=== PATIENT | female | born 1950 | race Caucasian/White ===

== ENCOUNTER 2017-01-05 22:28 | Observation (INO) | payer MEDICARE ==
[~2017-01-05] VITALS: Ht 162.6 cm; Wt 74.5 kg
[~2017-01-05 22:28] MED LIST: LOSA100T2 PO; METF1000 PO; SIMV10TA PO
[2017-01-05 22:33] VITALS: BP 174/65; PULSE 74; RESP 16; TEMP 97.4; O2SAT 99
[2017-01-05] MEDS ORDERED: MORPHINE SULFATE 4 MG/ML INJ IV PUSH ONE (23:00)
[2017-01-05] MEDS ORDERED: ASPIRIN 81 MG CHEW TAB PO ONE (23:00)
[2017-01-05] MEDS ORDERED: SODIUM CHLORIDE 0.9% FLUSH 10 ML FLUSH IVF PRN (23:00)
[2017-01-05] MEDS ORDERED: NITROGLYCERIN 2% OINT 1 GM PACKET TOP ONE (23:00)
--- NOTE | 2017-01-05 23:02 | PD ---
HPI . Chest pain Chief Complaint: Chest Pain Time Seen by Provider: 22:51 Travel History International Travel<30 days: No Contact w/Intl Traveler<30days: No Traveled to known affect area: No History of Present Illness HPI Patient presents with chest pain that started about 5:30 PM. She describes it as achy and sharp and like gas. She rates it as 7/10. The pain has subsequently started radiating to the left neck and shoulder. She does state that the neck pain is exacerbated by movement. She reports associated nausea. She denies shortness of breath, diaphoresis and dizziness. She states that she took a baby aspirin and drank a glass of water with no relief of her symptoms. Chest pain has no associated exacerbating factors. Past medical history significant for hypertension, diabetes and hyperlipidemia. PFSH Past Medical History Arthritis: Yes Autoimmune Disease: No Heart Rhythm Problems: No Cancer: No Cardiac Catheterization: No Cardiovascular Problems: Yes (htn on meds) High Cholesterol: Yes Congestive Heart Failure: No Diabetes: Yes (type 2) Diminished Hearing: No Endocrine: Yes Gastrointestinal Disorders: Yes GERD: Yes Genitourinary: No Hiatal Hernia: Yes Hypertension: Yes Immune Disorder: No Neurologic: No Psychiatric: No Reproductive: No Respiratory: No Myocardial Infarction: No ?: Not Menopausal: Yes Tubal Ligation: Yes (1975) Past Surgical History Coronary Artery Bypass Graft: No Hysterectomy: Yes Pacemaker: No Other Surgery: Yes ("1973--R.FALLOPIAN TUBE REMOVED") Social History Alcohol Use: No Tobacco Use: No Substance Use: No Allergies-Medications (Allergen,Severity, Reaction): Coded Allergies: Azithromycin (Verified Allergy, Intermediate, RASH, 01/05/17) Codeine (Verified Adverse Reaction, Severe, NAUSA/VOMITING,DIZZINESS, 01/05) Reported Meds & Prescriptions Reported Meds & Active Scripts Active Reported [Gummy Vites] 2 Chew PO DAILY [Fish Oil] 1,000 Mg PO DAILY Pantoprazole (Pantoprazole Sodium) 40 Mg Tab 40 Mg PO DAILY Metformin (Metformin HCl) 500 Mg Tab 500 Mg PO DAILY With a meal Metformin (Metformin HCl) 1,000 Mg Tab 1,000 Mg PO BIDPC With meals Losartan-Hydrochlorothiazide 100-25 Mg Tab 1 Tab PO DAILY Simvastatin 10 Mg Tab 10 Mg PO DAILY Review of Systems Except as stated in HPI: all other systems reviewed are Neg Cardiovascular: Positive: Chest Pain or Discomfort Respiratory: No: Shortness of Breath Gastrointestinal: Positive: Nausea, No: Vomiting Musculoskeletal: Positive: Pain (left neck and shoulder pain) Physical Exam Narrative GENERAL: An alert and in no acute distress. SKIN: Warm and dry. HEAD: Atraumatic. Normocephalic. EYES: Pupils equal and round. Extraocular movements are intact. ENT: No nasal bleeding or discharge. Mucous membranes pink and moist. NECK: Trachea midline. Neck is supple. Tenderness to palpation of the left trapezius. CARDIOVASCULAR: Regular rate and rhythm. Heart sounds are normal. She does have chest wall tenderness. RESPIRATORY: No accessory muscle use. Lungs are clear with full air movement throughout. GASTROINTESTINAL: Abdomen soft, non-tender, nondistended. MUSCULOSKELETAL: No obvious deformities. No edema. NEUROLOGICAL: Awake and alert. No obvious cranial nerve deficits. Motor grossly within normal limits. Normal speech. PSYCHIATRIC: Appropriate mood and affect; insight and judgment normal. Data Data Last Documented VS Vital Signs Date Time Temp Pulse Resp B/P Pulse Ox O2 Delivery O2 Flow Rate FiO2 01/05/17 23:49 67 16 138/63 98 Room Air 01/05/17 22:33 97.4 Orders Basic Metabolic Panel (Bmp) (01/05/17 22:51) Ckmb (Isoenzyme) Profile (01/05/17 22:51) Complete Blood Count With Diff (01/05/17 22:51) D-Dimer (01/05/17 22:51) Magnesium (Mg) (01/05/17 22:51) Prothrombin Time / Inr (Pt) (01/05/17 22:51) Act Partial Throm Time (Ptt) (01/05/17 22:51) Troponin I (01/05/17 22:51) Chest, Single Ap (01/05/17 22:51) Ecg Monitoring (01/05/17 22:51) Iv Access Insert/Monitor (01/05/17 22:51) Oximetry (01/05/17 22:51) Oxygen Administration (01/05/17 22:51) Aspirin Chew (Aspirin Chew) (01/05/17 23:00) Morphine Inj (Morphine Inj) (01/05/17 23:00) Nitroglycerin 2% Oint (Nitroglycerin 2% (01/05/17 23:00) Sodium Chloride 0.9% Flush (Ns Flush) (01/05/17 23:00) CKMB (01/05/17 22:40) CKMB% (01/05/17 22:40) Ct Pulmonary Angiogram (01/05/17 23:27) Labs Laboratory Tests Test 01/05/17 22:40 White Blood Count 8.6 TH/MM3 Red Blood Count 4.75 MIL/MM3 Hemoglobin 12.5 GM/DL Hematocrit 37.8 % Mean Corpuscular Volume 79.6 FL Mean Corpuscular Hemoglobin 26.3 PG Mean Corpuscular Hemoglobin 33.0 % Concent Red Cell Distribution Width 14.6 % Platelet Count 290 TH/MM3 Mean Platelet Volume 8.8 FL Neutrophils (%) (Auto) 63.0 % Lymphocytes (%) (Auto) 27.4 % Monocytes (%) (Auto) 6.4 % Eosinophils (%) (Auto) 2.0 % Basophils (%) (Auto) 1.2 % Neutrophils # (Auto) 5.3 TH/MM3 Lymphocytes # (Auto) 2.4 TH/MM3 Monocytes # (Auto) 0.6 TH/MM3 Eosinophils # (Auto) 0.2 TH/MM3 Basophils # (Auto) 0.1 TH/MM3 CBC Comment DIFF FINAL Differential Comment Prothrombin Time 10.7 SEC Prothromb Time International 1.0 RATIO Ratio Activated Partial 25.2 SEC Thromboplast Time D-Dimer Quantitative (PE/DVT) 0.66 MG/L FEU Sodium Level 137 MEQ/L Potassium Level 3.9 MEQ/L Chloride Level 99 MEQ/L Carbon Dioxide Level 29.4 MEQ/L Anion Gap 9 MEQ/L Blood Urea Nitrogen 17 MG/DL Creatinine 0.86 MG/DL Estimat Glomerular Filtration 66 ML/MIN Rate Random Glucose 188 MG/DL Calcium Level 8.6 MG/DL Magnesium Level 1.3 MG/DL Total Creatine Kinase 135 U/L Creatine Kinase MB 1.2 NG/ML Troponin I LESS THAN 0.02 NG/ML MDM Medical Decision Making Medical Screen Exam Complete: Yes Emergency Medical Condition: Yes Medical Record Reviewed: Yes (past history is significant for hypertension, diabetes and hyperlipidemia.) Interpretation(s) EKG shows a sinus rhythm with some nonspecific STT wave changes. The EKG is unchanged from previous. Differential Diagnosis Differential diagnosis of chest pain includes but is not limited to musculoskeletal pain, pulmonary embolism, acute coronary syndrome, pneumonia, pleurisy Narrative Course Patient presents complaining with chest pain that radiates to the left neck and shoulder. She does have cardiac risk factors including hypertension, diabetes and hyperlipidemia. CBC & BMP Diagram 01/05/17 22:40 Initial cardiac enzymes are negative. D-dimer is 0.66. CT for PE has subsequently been ordered. Patient reports that her chest pain has been completely relieved by nitro paste. She is still complaining with some left neck pain. The nurse reports that the patient on morphine as she does not like the way that it makes her feel. Last Impressions Chest X-Ray 01/05/17 1770 Signed Impressions: Service Date/Time: December 23:07 - CONCLUSION: Normal examination for a patient of this age. Sky England MD Care is being turned over to Dr. Prescott pending the results of her CT for PE. The tentative plan is to admit her to the chest pain center. Critical Care Narrative Aggregate critical care time was 45 minutes. Time to perform other separately billable procedures was not included in the critical care time. My time did not include minutes spent treating any other patients simultaneously or on activities that did not directly contribute to the patient's treatment. The services I provided to this patient were to treat and/or prevent clinically significant deterioration due to chest pain with the possibility of ACS/non- STEMI I provided critical care services requiring my management, as noted below: Chart data review, documentation time, medication orders and management, vital sign assessments/reviewing monitor data, ordering and reviewing lab tests, ordering and interpreting/reviewing x-rays and diagnostic studies, care of the patient and discussion of the patient with the admitting physicians Diagnosis Primary Impression: Chest pain Qualified Code: R07.9 - Chest pain, unspecified type Condition: Stable Sheron Mallory MD January 05, 2017 23:02
[2017-01-05] MEDS ORDERED: METF500T PO (23:04)
[2017-01-05 23:06] LABS: AUTOMATED NEUTROPHIL # 5.3 TH/MM3 (1.8-7.7); BASOPHIL # 0.1 TH/MM3 (0-0.2); BASOPHIL % 1.2 % (0.0-2.0); EOSINOPHIL # 0.2 TH/MM3 (0-0.4); HEMATOCRIT 37.8 % (35.0-46.0); HEMO FLAGS DIFF FINAL; LYMPH % 27.4 % (9.0-44.0); LYMPHOCYTE # 2.4 TH/MM3 (1.0-4.8); MEAN CELL VOLUME 79.6 FL (80.0-100.0); MEAN CORPUSCULAR HEMOGLOBIN 26.3 PG (27.0-34.0); MONO % 6.4 % (0.0-8.0); PLATELET COUNT 290 TH/MM3 (150-450); RED BLOOD COUNT 4.75 MIL/MM3 (4.00-5.30); RED CELL DISTRIBUTION WIDTH 14.6 % (11.6-17.2); WHITE BLOOD COUNT 8.6 TH/MM3 (4.0-11.0)
[2017-01-05] MEDS ORDERED: PANT40TA3 PO (23:08)
[2017-01-05] MEDS ORDERED: FISHOIL PO (23:08)
[2017-01-05] MEDS ORDERED: [UNRECOGNIZED DRUG - OTHER] PO (23:09)
--- NOTE | 2017-01-05 23:13 | RADHPO ---
EXAM DATE/TIME: 01/05/2017 23:07 [facility] COMPARISON: No previous studies available for comparison. INDICATIONS : Left sided chest pain for 6 hours MEDICAL HISTORY : None. SURGICAL HISTORY : None. ENCOUNTER: Initial ACUITY: 1 day PAIN SCORE: 8/10 LOCATION: Left chest FINDINGS: A single view of the chest demonstrates the lungs to be symmetrically aerated without evidence of mas s, infiltrate or effusion. The cardiomediastinal contours are unremarkable. Osseous structures are intact. CONCLUSION: Normal examination for a patient of this age. Sky England MD on January 05, 2017 at 23:11 Board Certified Radiologist. This report was verified electronically.
[2017-01-05 23:16] LABS: CHLORIDE 99 MEQ/L (98-107); SODIUM (NA) 137 MEQ/L (136-145)
[2017-01-05 23:17] LABS: POTASSIUM 3.9 MEQ/L (3.5-5.1)
[2017-01-05 23:19] LABS: ANION GAP 9 MEQ/L (5-15); BICARBONATE 29.4 MEQ/L (21.0-32.0); BLOOD UREA NITROGEN 17 MG/DL (7-18); MAGNESIUM 1.3 MG/DL (1.5-2.5)
[2017-01-05 23:22] LABS: GLOMERULAR FILTRATION RATE 66 ML/MIN (>89)
[2017-01-05 23:25] LABS: APTT (PATIENT) 25.2 SEC (24.3-30.1); PROTHROMBIN TIME - PATIENT 10.7 SEC (9.8-11.6)
[2017-01-05 23:26] LABS: CREATINE KINASE 135 U/L (26-192)
[2017-01-05 23:37] LABS: CKMB 1.2 NG/ML (0.5-3.6)
[2017-01-05 23:49] VITALS: BP 138/63; PULSE 67; RESP 16; O2SAT 98
[2017-01-06] VITALS (7 sets, daily range): BP systolic 113–143; BP diastolic 63–74; PULSE 65–74; RESP 15–18; TEMP 95.7–96.5; O2SAT 94–97
[2017-01-06] MEDS ORDERED: IOHEXOL 350 MG/ML 10 ML VIAL (for RAD DIAG) IV ONE (00:40)
--- NOTE | 2017-01-06 00:45 | RADHPO ---
EXAM DATE/TIME: 01/06/2017 00:09 [facility] COMPARISON: No previous studies available for comparison. INDICATIONS : Chest pain radiating to the left arm and neck. IV CONTRAST: 75 cc Omnipaque 350 (iohexol) IV RADIATION DOSE: 14.2 CTDIvol (mGy) MEDICAL HISTORY : Hypertension. Gastroesophageal reflux disease. Diabetes mellitus type 2.Hiatal hernia. SURGICAL HISTORY : Hysterectomy. ENCOUNTER: Initial ACUITY: 1 day PAIN SCALE: 7/10 LOCATION: chest TECHNIQUE: Volumetric scanning of the chest was performed using a pulmonary embolism protocol MIP images were re constructed. Using automated exposure control and adjustment of the mA and/or kV according to patien t size, radiation dose was kept as low as reasonably achievable to obtain optimal diagnostic quality images. FINDINGS: PULMONARY ARTERIES: No filling defects are seen in the pulmonary arteries through the segmental level. LUNGS: There is no consolidation or pneumothorax . There is a 4 mm pulmonary nodule in the right upper lung. There is a 5 mm pulmonary nodule in the right upper lung. No acute pulmonary infiltrates. PLEURAE: There is no pleural thickening or pleural effusion. MEDIASTINUM: There is good visualization of the great vessels of the middle mediastinum. No evidence of mediastin al or hilar adenopathy/mass. MUSCULOSKELETAL: Within normal limits for patient age. MISCELLANEOUS: The visualized upper abdominal organs demonstrate no acute abnormality. CONCLUSION: 1. No evidence of pulmonary embolism. 2. There is a 5 mm pulmonary nodule and a 4 mm pulmonary nodule in the peripheral right upper lung. T his finding is nonspecific. Recommend followup noncontrast CT thorax in 6 months. Sky England MD on January 06, 2017 at 0:40 Board Certified Radiologist. This report was verified electronically.
--- NOTE | 2017-01-06 01:36 | PD ---
Physical Exam Time Seen by Provider: 01:[address] Mallory left this patient with me to check the results of the CT scan and referred to the chest pains are. Data Data Last Documented VS Vital Signs Date Time Temp Pulse Resp B/P Pulse Ox O2 Delivery O2 Flow Rate FiO2 01/05/17 23:49 67 16 138/63 98 Room Air 01/05/17 22:33 97.4 Orders Basic Metabolic Panel (Bmp) (01/05/17 22:51) Ckmb (Isoenzyme) Profile (01/05/17 22:51) Complete Blood Count With Diff (01/05/17:51) D-Dimer (01/05/17:51) Magnesium (Mg) (01/05/17:51) Prothrombin Time / Inr (Pt) (01/05/17:51) Act Partial Throm Time (Ptt) (01/05/17:51) Troponin I (01/05/17 22:51) Chest, Single Ap (01/05/17:51) Ecg Monitoring (01/05/17:51) Iv Access Insert/Monitor (01/05/17:51) Oximetry (01/05/17:51) Oxygen Administration (01/05/17:51) Aspirin Chew (Aspirin Chew) (01/05/17 23:00) Morphine Inj (Morphine Inj) (01/05/17 23:00) Nitroglycerin 2% Oint (Nitroglycerin 2% (01/05/17 23:00) Sodium Chloride 0.9% Flush (Ns Flush) (01/05/17 23:00) CKMB (01/05/17 22:40) CKMB% (01/05/17 22:40) Ct Pulmonary Angiogram (01/05/17 23:27) Iohexol 350 Inj (Omnipaque 350 Inj) (01/06/17 00:40) Admit Order (Ed Use Only) (01/06/17 01:42) Labs Laboratory Tests Test 01/05/17 22:40 White Blood Count 8.6 TH/MM3 Red Blood Count 4.75 MIL/MM3 Hemoglobin 12.5 GM/DL Hematocrit 37.8 % Mean Corpuscular Volume 79.6 FL Mean Corpuscular Hemoglobin 26.3 PG Mean Corpuscular Hemoglobin 33.0 % Concent Red Cell Distribution Width 14.6 % Platelet Count 290 TH/MM3 Mean Platelet Volume 8.8 FL Neutrophils (%) (Auto) 63.0 % Lymphocytes (%) (Auto) 27.4 % Monocytes (%) (Auto) 6.4 % Eosinophils (%) (Auto) 2.0 % Basophils (%) (Auto) 1.2 % Neutrophils # (Auto) 5.3 TH/MM3 Lymphocytes # (Auto) 2.4 TH/MM3 Monocytes # (Auto) 0.6 TH/MM3 Eosinophils # (Auto) 0.2 TH/MM3 Basophils # (Auto) 0.1 TH/MM3 CBC Comment DIFF FINAL Differential Comment Prothrombin Time 10.7 SEC Prothromb Time International 1.0 RATIO Ratio Activated Partial 25.2 SEC Thromboplast Time D-Dimer Quantitative (PE/DVT) 0.66 MG/L FEU Sodium Level 137 MEQ/L Potassium Level 3.9 MEQ/L Chloride Level 99 MEQ/L Carbon Dioxide Level 29.4 MEQ/L Anion Gap 9 MEQ/L Blood Urea Nitrogen 17 MG/DL Creatinine 0.86 MG/DL Estimat Glomerular Filtration 66 ML/MIN Rate Random Glucose 188 MG/DL Calcium Level 8.6 MG/DL Magnesium Level 1.3 MG/DL Total Creatine Kinase 135 U/L Creatine Kinase MB 1.2 NG/ML Troponin I LESS THAN 0.02 NG/ML MDM Medical Record Reviewed: Yes Supervised Visit with REJI: Yes Interpretation(s) The CT pulmonary angiogram shows no evidence of pulmonary embolism. There is a 5 mm pulmonary nodule and a 4 mm pulmonary nodule in the peripheral right upper lung. Radiologist recommended follow-up noncontrast CT of the thorax in 6 months. Differential Diagnosis Chest pain etiology undetermined, pulmonary embolus, acute coronary syndrome, chest wall pain, pleuritic pain, gastrointestinal pain, esophageal pain Narrative Course The patient has chest pain etiology undetermined. She will be admitted to the chest pain center. Diagnosis Primary Impression: Chest pain of unknown etiology Additional Impression: Pulmonary nodules/lesions, multiple Admitting Information Admitting Physician Requests: Observation Additional Instruction: As we discussed, there are several nodules in your lung that need to be followed up with the chest CT in 6 months. Tell the people in the chest pain center that you need to do a chemical stress test, that your knee does not allow you to do a treadmill. Condition: Stable Hardeep Prescott MD January 06, 2017 01:36
[2017-01-06] MEDS ORDERED: ONDANSETRON HCL 4 MG/2 ML VIAL IV PRN (01:45)
[2017-01-06] MEDS ORDERED: SODIUM CHLORIDE 0.9% FLUSH 10 ML FLUSH IV FLUSH PRN (01:45)
[2017-01-06] MEDS: ACETAMINOPHEN 500 MG CPLT PO PRN ×2 (02:07→08:12)
[2017-01-06 02:36] LABS: CREATINE KINASE 88 U/L (26-192)
[2017-01-06] MEDS ORDERED: MAGNESIUM OXIDE 400 MG TAB PO ONE (05:45)
[2017-01-06] MEDS ORDERED: DEXTROSE 50% IN WATER 50 ML VIAL(D50) IV PUSH PRN (05:45)
[2017-01-06] MEDS ORDERED: GLUCAGON 1 MG/ML VIAL OTHER PRN (05:45)
[2017-01-06] MEDS ORDERED: NITROGLYCERIN 2% OINT 1 GM PACKET TOP SCH (06:00)
[2017-01-06] MEDS ORDERED: INSULIN ASPART SUPPLEMENTAL SCALE SQ SCH (07:00)
[2017-01-06 07:05] LABS: CREATINE KINASE 77 U/L (26-192)
--- NOTE | 2017-01-06 08:21 | EKG ---
Date Performed: 01/06/2017 Time Performed: 04:39:10 PTAGE: 66 years EKG: Sinus arrhythmia Prolonged QT interval Anterior T wave changes are nonspecific Borderline E CG NO SIGNIFICANT CHANGE FROM PRIOR ELECTROCARDIOGRAM. PREVIOUS TRACING : 01/06/2017 02.00 DOCTOR: Joni Carbajal Interpretating Date/Time 01/06/2017 08:19:13
--- NOTE | 2017-01-06 08:21 | EKG ---
Date Performed: 01/06/2017 Time Performed: 02:00:04 PTAGE: 66 years EKG: Sinus arrhythmia Prolonged QT interval Anterolateral T wave changes are nonspecific Borderl ine ECG COMPARED TO PRIOR ELECTROCARDIOGRAM, QT interval may have increased and nonspecific T wave ch anges are slightly more marked. PREVIOUS TRACING : 01/05/2017 22.33 DOCTOR: Joni Carbajal Interpretating Date/Time 01/06/2017 08:20:09
--- NOTE | 2017-01-06 08:22 | EKG ---
Date Performed: 01/05/2017 Time Performed: 22:33:14 PTAGE: 66 years EKG: --- Warning: Data quality may affect interpretation --- Sinus rhythm Normal ECG NO SIGNIFICANT CHANGE FROM PRIOR ELECTROCARDIOGRAM. PREVIOUS TRACING : 08/31/2012 21.27 DOCTOR: Joni Carbajal Interpretating Date/Time 01/06/2017 08:20:59
--- NOTE | 2017-01-06 08:33 | HHI.HP ---
[facility] Service [facility] Primary Care Physician Rigoberto Sprague, DO Admission Diagnosis chest pain of unknown etiology Diagnoses: (1) Chest pain Diagnosis: Principal (2) Pulmonary nodules/lesions, multiple Diagnosis: Secondary (3) Hypertension Diagnosis: Secondary (4) Hyperlipidemia Diagnosis: Secondary (5) Diabetes Diagnosis: Secondary (6) Family history of heart disease Diagnosis: Secondary Chief Complaint: Chest pain Travel History International Travel<30 Days: No Contact w/Intl Traveler <30 Da: No Traveled to Known Affected Are: No History of Present Illness 66-year-old female with known history of hypertension, hyperlipidemia , diabetes, history tobacco use, family history of heart disease who presented to hospital because acute onset of chest discomfort. Patient states that she was in normal state of health yesterday while she is babysitting her grandchildren until probably 5:30 PM when she was sitting and watching TV she started developing a pressure type sensation in her anterior chest which was graded 5/10. Approximately 30 minutes after the pain started she started experiencing pain going up into the left side of her neck into her left shoulder. She classified that pain as a 7/10. The pain persisted after she got home approximately 8:20 PM. She did take a baby aspirin at that time without any resolution of the pain. Because the pain did not resolve and she looked up on the Internet that it could be related to her heart she called her son who brought her to the hospital for evaluation at 10:30 last evening. Patient states that she did have some nausea but no vomiting. Denied any diaphoresis, shortness of breath, dyspnea, lightheadedness, dizziness, diaphoresis. Patient states that she has never had this type of pain before. She did have some chest pain back, however it was a different type of pain. At that time she underwent an exercise stress test which was negative. Patient is followed by Dr. Thakur in outpatient setting. She does not have a development technologist. Patient was recommended chest pain center observation for further evaluation. Review of Systems Constitutional: DENIES: Diaphoretic episodes, Fatigue, Fever, Weight gain, Weight loss, Chills, Dizziness, Change in appetite, Night Sweats Eyes: DENIES: Blurred vision, Diplopia, Eye inflammation, Eye pain, Vision loss , Double Vision Ears, nose, mouth, throat: DENIES: Vertigo, Nasal discharge, Throat pain, Ear Pain, Running Nose, Sinus Pain Respiratory: DENIES: Apneas, Cough, Snoring, Wheezing, Hemoptysis, Sputum production, Shortness of breath Cardiovascular: COMPLAINS OF: Chest pain, DENIES: Palpitations, Syncope, Dyspnea on Exertion, Lower Extremity Edema, Orthopnea Gastrointestinal: COMPLAINS OF: Nausea, DENIES: Abdominal pain, Black stools, Bloody stools, Constipation, Diarrhea, Vomiting, Difficulty Swallowing, Anorexia Neurologic: DENIES: Abnormal gait, Headache, Localized weakness, Paresthesias, Seizures, Speech Problems, Tremor, Poor Balance Past Family Social History Past Medical History Hypertension Hyperlipidemia Diabetes Hiatal hernia Gastroesophageal reflux History tobacco use Past Surgical History Cataract removal right eye To surgery Tubal ligation Hysterectomy EGD/colonoscopy Bilateral carpal tunnel surgery Reported Medications Reported Meds & Active Scripts Active Reported [Gummy Vites] 2 Chew PO DAILY [Fish Oil] 1,000 Mg PO DAILY Pantoprazole (Pantoprazole Sodium) 40 Mg Tab 40 Mg PO DAILY Metformin (Metformin HCl) 500 Mg Tab 500 Mg PO DAILY With a meal Metformin (Metformin HCl) 1,000 Mg Tab 1,000 Mg PO BIDPC With meals Losartan-Hydrochlorothiazide 100-25 Mg Tab 1 Tab PO DAILY Simvastatin 10 Mg Tab 10 Mg PO DAILY Allergies: Coded Allergies: Azithromycin (Verified Allergy, Intermediate, RASH, 01/05/17) Codeine (Verified Adverse Reaction, Severe, NAUSA/VOMITING,DIZZINESS, 01/05) Family History Reviewed and highly significant for heart disease. States that mother in her 70s from myocardial infarction. Father had myocardial infarction and stroke. Sister just had myocardial infarction and stroke this year. Also significant for diabetes in mother, father, sister Social History Patient quit smoking 30 years ago prior to that she smoked one pack a cigarettes a day since she was 13 years old. Patient denies any alcohol or illicit drugs Physical Exam Vital Signs Vital Signs Date Time Temp Pulse Resp B/P Pulse Ox O2 Delivery O2 Flow Rate FiO2 01/06/17 07:00 65 01/06/17 04:00 95.7 66 16 113/65 97 01/06/17 03:34 96 21 01/06/17 02:18 69 16 137/65 96 Room Air 01/05/17 23:49 67 16 138/63 98 Room Air 01/05/17 22:35 74 99 Room Air 01/05/17 22:33 97.4 74 16 174/65 99 Physical Exam GENERAL: Well-developed, well-nourished, in no acute distress. alert and orientated HEENT: Head is normocephalic without any lesions or masses noted. Facial features are symmetric. Eyes: Pupils equal round reactive to light. Extraocular muscles are intact. Conjunctivae were clear. Oropharyngeal: Pharynx without any erythema edema. Tongue is midline without deviation. Buccal mucosa is moist without any masses or lesions NECK: Supple without any masses. Trachea midline no deviation. No JVD, no bruits are appreciated CARDIAC: Regular rhythm, regular rate. S1/S2 are heard. No murmurs gallops or rubs. LUNGS: Clear to auscultation bilaterally. No wheeze, rhonchi or rales. No use of accessory muscles on inspiration or expiration. ABDOMEN: Soft, nontender. Nondistended. Bowel sounds heard in all 4 quadrants. No organomegaly or masses. Negative rebound, negative guarding EXTREMITIES: No edema, pulses are equal bilaterally. No cyanosis or clubbing NEUROLOGY: Mood and affect appear appropriate. Cranial nerves II through XII grossly intact. Muscle strength 5/5 in upper and lower extremities bilaterally. Deep tendon reflexes are 2+ in upper and lower extremities bilaterally. Laboratory Laboratory Tests Test 01/05/17 01/06/17 01/06/17 22:40 02:08 04:48 White Blood Count 8.6 Red Blood Count 4.75 Hemoglobin 12.5 Hematocrit 37.8 Mean Corpuscular Volume 79.6 Mean Corpuscular Hemoglobin 26.3 Mean Corpuscular Hemoglobin 33.0 Concent Red Cell Distribution Width 14.6 Platelet Count 290 Mean Platelet Volume 8.8 Neutrophils (%) (Auto) 63.0 Lymphocytes (%) (Auto) 27.4 Monocytes (%) (Auto) 6.4 Eosinophils (%) (Auto) 2.0 Basophils (%) (Auto) 1.2 Neutrophils # (Auto) 5.3 Lymphocytes # (Auto) 2.4 Monocytes # (Auto) 0.6 Eosinophils # (Auto) 0.2 Basophils # (Auto) 0.1 CBC Comment DIFF FINAL Differential Comment Prothrombin Time 10.7 Prothromb Time International 1.0 Ratio Activated Partial 25.2 Thromboplast Time D-Dimer Quantitative (PE/DVT) 0.66 Sodium Level 137 Potassium Level 3.9 Chloride Level 99 Carbon Dioxide Level 29.4 Anion Gap 9 Blood Urea Nitrogen 17 Creatinine 0.86 Estimat Glomerular Filtration 66 Rate Random Glucose 188 Calcium Level 8.6 Magnesium Level 1.3 Total Creatine Kinase 135 88 77 Creatine Kinase MB 1.2 Troponin I LESS THAN 0.02 LESS THAN 0.02 LESS THAN 0.02 Result Diagram: 01/05/170 01/05/172239 Imaging Last Impressions CT Angiography 01/05/17 2327 Signed Impressions: Service Date/Time: Friday, January 06, 2017 00:09 - CONCLUSION: 1. No evidence of pulmonary embolism. 2. There is a 5 mm pulmonary nodule and a 4 mm pulmonary nodule in the peripheral right upper lung. This finding is nonspecific. Recommend followup noncontrast CT thorax in 6 months. Sky England MD Chest X-Ray 01/05/17 2252 Signed Impressions: Service Date/Time: December 23:07 - CONCLUSION: Normal examination for a patient of this age. Sky England MD Assessment and Plan Assessment and Plan Chest pain With increased risk factors to include age, hypertension, hyperlipidemia, diabetes, history tobacco use, family history of heart disease Patient has been ruled out for any acute coronary event with serial cardiac enzymes which are negative Serial EKGs were performed and reviewed by myself which shows sinus arrhythmia , prolonged QT interval, anterior T-wave changes which are nonspecific without any acute changes. Nuclear stress test was performed which did not indicate any signs of ischemia , low risk. Continue aspirin, nitroglycerin as needed Hypertension Blood pressure stable this time, continue home medications Hyperlipidemia Continue statin Diabetes Hold metformin at this time secondary to contrasted CT performed Accu-Cheks with sliding scale insulin Pulmonary nodules on CT scan Patient is already counseled by ER physician to have follow-up done in 6 months with her primary medical doctor DVT prevention Low risk, early ambulation Written by Dann Prescott, acting as scribe for Dr. Evangelista on 01/06/17 at 08: 33. This note was transcribed by scribe [Dann Prescott]. I, Dr. Raj Evangelista personally performed the history, physical exam, and medical decision making; and confirmed the accuracy of the information in the transcribed note. Authenticated by Dr. Raj Evangelista on 01/06/17 at 12:03. Discharge disposition Discharge home in stable condition Activity: Ad mark. Diet: Healthy heart diet Medications per medication reconciliation Follow-up primary medical doctor one week Problem Qualifiers (1) Chest pain: Qualified Code: R07.9 - Chest pain, unspecified type (2) Hypertension: Qualified Code: I15.9 - Secondary hypertension (3) Hyperlipidemia: Qualified Code: E78.5 - Hyperlipidemia, unspecified hyperlipidemia type (4) Diabetes: Qualified Code: E11.8 - Type 2 diabetes mellitus with complication, without long-term current use of insulin Dann Prescott January 06, 2017 08:33 Raj Evangelista MD January 06, 2017 12:03
[2017-01-06] MEDS ORDERED: HYDROCHLOROTHIAZIDE 25 MG TAB PO SCH (09:00)
[2017-01-06] MEDS ORDERED: NON-FORMULARY DRUG (Losartan-Hydrochlorothiazide 1 TAB) PO SCH (09:00)
[2017-01-06] MEDS ORDERED: PANTOPRAZOLE SOD 40 MG DELAYED RELEASE TAB PO SCH (09:00)
[2017-01-06] MEDS ORDERED: SODIUM CHLORIDE 0.9% FLUSH 10 ML FLUSH IV FLUSH SCH (09:00)
[2017-01-06] MEDS ORDERED: PRAVASTATIN SOD 20 MG TAB PO SCH (09:00)
[2017-01-06] MEDS ORDERED: LOSARTAN 50 MG TAB PO SCH (09:00)
[2017-01-06] MEDS ORDERED: REGADENOSON INJ 0.4 MG/5 ML SYR IV ONE (09:54)
--- NOTE | 2017-01-06 11:49 | RADHPO ---
EXAM DATE/TIME: 01/06/2017 09:58 [place] COMPARISON: No previous studies available for comparison. INDICATIONS : Substernal chest pain radiating to left neck and shoulder with nausea. Angina. DOSE: 25.4 mCi Tc99m Myoview at stress. 8.5 mCi Tc99m Myoview at rest. 0.4 mg Lexiscan STRESS SYMPTOMS: Nausea, dyspnea, facial flushed and chest heaviness. EJECTION FRACTION: 66% MEDICAL HISTORY : Hypertension. Diabetes mellitus type 2. Hyperlipidemia. SURGICAL HISTORY : Hysterectomy. ENCOUNTER: Initial ACUITY: 1 day PAIN SCALE: 7/10 LOCATION: Substernal chest TECHNIQUE: The patient underwent pharmacologic stress with infusion of prescribed dose. Continuous ECG tracing was monitored during stress. Gated SPECT imaging was performed after stress and conventional SPECT i maging was performed at rest. The examination was performed on a SPECT/CT scanner, both attenuation and non-corrected datasets were reviewed. FINDINGS: DISTRIBUTION: The maximum perfused segment at stress is in the anterior lateral wall. Moderate gut activity does ob scure the inferior wall. PERFUSION STUDY: The pattern of perfusion at stress is within normal limits. GATED STUDY: There is intact wall motion and thickening without hypokinetic or dyskinetic segments. CONCLUSION: Negative for stress-induced ischemia.. RISK CATEGORY: Low (<1% Annual Mortality Rate) Paulino Perez MD FACR on January 06, 2017 at 11:46 Board Certified Radiologist. This report was verified electronically.
--- NOTE | 2017-01-06 11:51 | HHI.DCPOC ---
Discharge Care Plan Diagnosis: (1) Chest pain Goals to Promote Your Health * To prevent worsening of your condition and complications * To maintain your health at the optimal level Directions to Meet Your Goals Take your medications as prescribed Follow your dietary instruction Follow activity as directed Keep your appointments as scheduled Take your immunizations and boosters as scheduled If your symptoms worsen call your PCP, if no PCP go to Urgent Care Center or Emergency Room Smoking is Dangerous to Your Health. Avoid second hand smoke Call the 24-hour hour crisis hotline for domestic abuse at Dann Prescott January 06, 2017 11:51
--- NOTE | 2017-01-06 15:01 | TR ---
Date Performed: 01/06/2017 Time Performed: 10:17:41 DOCTOR: Karol Rick DRUG LIST: CLINICAL HISTORY: CHEST PAIN REASON FOR TEST: Chest pain REASON FOR ENDING: OBSERVATION: CONCLUSION: Lexiscan stress test was performed under standard four minute protocol. Radionuclid e was injected one minute prior to ending the test. No electrocardiographic abormalities were present to suggest ischemia. Nuclear imaging and interpretation are pending. COMMENTS:
== END 2017-01-06 12:30 | disposition home or self-care (01) ==
LOC: PHED 22:28 → PHEDA 01-06 01:45 → PH3B 01-06 02:58
PROVIDERS: ADMIT Family Medicine; ATTEND Family Medicine
DX: R07.89 Other chest pain (principal); R11.0 Nausea; R91.8 Other nonspecific abnormal finding of lung field; I10 Essential (primary) hypertension; E78.5 Hyperlipidemia, unspecified; E11.9 Type 2 diabetes mellitus without complications; M19.90 Unspecified osteoarthritis, unspecified site; E78.00 Pure hypercholesterolemia, unspecified; K21.9 Gastro-esophageal reflux disease without esophagitis; Z88.1 Allergy status to other antibiotic agents; Z88.5 Allergy status to narcotic agent; Z79.84 Long term (current) use of oral hypoglycemic drugs; Z82.49 Family history of ischemic heart disease and other diseases of the circulatory system; Z87.891 Personal history of nicotine dependence
CPT/HCPCS: 71010; 71275; 78452; 80048; 82550; 82552; 82948; 83735; 84484; 85025; 85379; 85610; 85730; 93005; 93017; 99291; A9502; G0378; J2785; Q9967